=== PATIENT | female | born 1950 | race Caucasian/White ===

== ENCOUNTER 2021-05-05 08:11 | Day surgery (SDC) | payer MEDICARE, MEDICAID ==
[~2021-05-05] VITALS: Ht 157.5 cm; Wt 95.9 kg
[2021-05-05 08:34] VITALS: BP 160/111
[2021-05-05] MEDS ORDERED: FURO-150 PO (08:48)
[2021-05-05] MEDS ORDERED: DULO60CA65 PO (08:50)
[2021-05-05] MEDS ORDERED: METF-436 PO (08:50)
[2021-05-05] MEDS ORDERED: POTA10TA36 PO (08:54)
[2021-05-05] MEDS ORDERED: LOSA50TA64 PO (08:55)
[2021-05-05] MEDS ORDERED: CLOP75TA33 PO (08:56)
[2021-05-05] MEDS ORDERED: CARV3.1244 PO (08:56)
[2021-05-05] MEDS ORDERED: AMLO10TA PO (08:57)
[2021-05-05] MEDS ORDERED: DILT240C90 PO (09:00)
[2021-05-05] MEDS ORDERED: NITR0.4T SL (09:01)
[2021-05-05] MEDS ORDERED: fentaNYL/PF 50MCG/1 ML 2ML syringe ONE (09:08)
[2021-05-05] MEDS ORDERED: MIDAZolam 1 MG/ML 5ML VIAL ONE (09:08)
[2021-05-05 09:52] VITALS: BP 168/75
[2021-05-05 10:02] VITALS: BP 156/65
[2021-05-05 10:12] VITALS: BP 145/55
[2021-05-05 10:22] VITALS: BP 152/71
== END 2021-05-05 10:25 | disposition home or self-care (01) ==
LOC: GI LAB 08:11
PROVIDERS: ATTEND Internal Medicine Gastroenterology
DX: R19.5 Other fecal abnormalities (principal); C19 Malignant neoplasm of rectosigmoid junction; K57.30 Diverticulosis of large intestine without perforation or abscess without bleeding; I10 Essential (primary) hypertension; I25.2 Old myocardial infarction; J44.9 Chronic obstructive pulmonary disease, unspecified; F17.210 Nicotine dependence, cigarettes, uncomplicated; Z95.5 Presence of coronary angioplasty implant and graft; Z79.01 Long term (current) use of anticoagulants; Z79.899 Other long term (current) drug therapy
CPT/HCPCS: 45380; 99153; G0500; J2250; J3010; J7040; 99152; A4620

== ENCOUNTER 2021-06-18 11:03 | Day surgery (SDC) | payer MEDICARE, MEDICAID ==
[~2021-06-18 11:03] MED LIST: AMLO10TA PO; CARV3.1244 PO; CLOP75TA33 PO; DILT240C90 PO; DULO60CA65 PO; FURO-150 PO; LOSA50TA64 PO; METF-436 PO; NITR0.4T SL; POTA10TA36 PO
--- NOTE | 2021-06-18 11:30 | NUR ---
PER ANGIO RN AND MD PROCEDURE CANCELLED.
== END 2021-06-18 11:35 | disposition home or self-care (01) ==
LOC: SSTAY O 11:03
PROVIDERS: ATTEND Radiology Diagnostic Radiology
DX: K76.9 Liver disease, unspecified (principal); C20 Malignant neoplasm of rectum; Z53.8 Procedure and treatment not carried out for other reasons

== ENCOUNTER 2021-07-20 09:02 | Day surgery (SDC) | payer MEDICARE, MEDICAID ==
[~2021-07-20] VITALS: Ht 157.5 cm; Wt 96.6 kg
[2021-07-20] VITALS (13 sets, daily range): BP systolic 114–148; BP diastolic 53–78
[2021-07-20] MEDS ORDERED: normal saline 1000ml 1,000 ML IV SCH ×2 (09:35→09:55)
[2021-07-20] MEDS ORDERED: heparin sodium, porcine/PF 100unit/ml 5ML syringe ONE (10:01)
[2021-07-20] MEDS ORDERED: LIDOcaine 1%/PF 5ML 10 MG/ML VIAL ONE (10:01)
[2021-07-20] MEDS ORDERED: fentaNYL/PF 50MCG/1 ML 2ML syringe ONE ×3 (10:02→11:47)
[2021-07-20] MEDS ORDERED: midazolam 1 mg/ML 2ml injection ONE ×3 (10:02→11:47)
[2021-07-20] MEDS ORDERED: ASPI-1265 PO (10:29)
[2021-07-20] MEDS ORDERED: CHLO25TA10 PO (10:29)
[2021-07-20] MEDS ORDERED: HYDR-3964 PO (10:29)
[2021-07-20] MEDS ORDERED: NITR0.4T51 SL (10:29)
[2021-07-20 10:55] LABS: BASOPHILS % (AUTO) 0.3 % (0-1); EOSINOPHILS # (AUTO) 0.6 X10'3 (0-0.9); EOSINOPHILS % (AUTO) 7.6 % (0-6); HEMATOCRIT 40.2 % (35.0-45.0); HEMOGLOBIN 13.3 g/dl (12.0-16.0); LYMPHOCYTES # (AUTO) 2.8 X10'3 (1.1-4.8); LYMPHOCYTES % (AUTO) 33.4 % (21-51); MEAN CORPUSCULAR HEMOGLOBIN 27.9 PG (27.0-31.0); MEAN CORPUSCULAR VOLUME 84.4 FL (78-98); MEAN PLATELET VOLUME 7.5 FL (7.4-10.4); MONOCYTES # (AUTO) 0.7 X10'3 (0-0.9); MONOCYTES % (AUTO) 8.4 % (2-12); NEUTROPHILS # (AUTO) 4.2 X10'3 (1.8-7.7); NEUTROPHILS % (AUTO) 50.3 % (42-75); PLATELET COUNT 394 X10'3 (140-440); RED BLOOD COUNT 4.76 X10'6 (4.20-5.60); RED CELL DISTRIBUTION WIDTH 16.7 % (11.5-14.5); WHITE BLOOD COUNT 8.4 X10'3 (4.5-11.0)
== END 2021-07-20 15:50 | disposition home or self-care (01) ==
LOC: SSTAY O 09:02
PROVIDERS: ATTEND Radiology Diagnostic Radiology
DX: C20 Malignant neoplasm of rectum (principal); K76.89 Other specified diseases of liver; E11.9 Type 2 diabetes mellitus without complications; I10 Essential (primary) hypertension; I25.10 Atherosclerotic heart disease of native coronary artery without angina pectoris; Z98.890 Other specified postprocedural states; Z79.899 Other long term (current) drug therapy; Z79.01 Long term (current) use of anticoagulants; Z79.84 Long term (current) use of oral hypoglycemic drugs
CPT/HCPCS: 36561; 47000; 76937; 77001; 77012; 85025; 85610; 99152; 99153; C1769; C1788; C1894; J1642; J2250; J3010; 88307

== ENCOUNTER 2021-07-30 07:39 | Day surgery (SDC) | payer MEDICARE, MEDICAID ==
[~2021-07-30] VITALS: Ht 157.5 cm; Wt 97.8 kg
[~2021-07-30 07:39] MED LIST changes: +ASPI-1265 PO; +CHLO25TA10 PO; +HYDR-3964 PO; +NITR0.4T51 SL
[2021-07-30 08:20] VITALS: BP 141/72
[2021-07-30] MEDS ORDERED: morphine 4 MG/ML inj SYRINge IV ONE (08:45)
[2021-07-30] MEDS ORDERED: TIOT18CA3 (09:06)
== END 2021-07-30 10:00 | disposition home or self-care (01) ==
LOC: SSTAY O 07:39
PROVIDERS: ATTEND Preventive Medicine Aerospace Medicine
DX: Z45.2 Encounter for adjustment and management of vascular access device (principal); Z53.8 Procedure and treatment not carried out for other reasons; I51.7 Cardiomegaly; J98.11 Atelectasis
CPT/HCPCS: 71045; J2270

== ENCOUNTER 2021-08-03 08:53 | Day surgery (SDC) | payer MEDICARE, MEDICAID ==
[~2021-08-03] VITALS: Ht 157.5 cm; Wt 97.7 kg
[~2021-08-03 08:53] MED LIST changes: -ASPI-1265 PO; -CLOP75TA33 PO; -DILT240C90 PO; +TIOT18CA3 PO
[2021-08-03 09:30] VITALS: BP 166/84
[2021-08-03] MEDS ORDERED: morphine 4 MG/ML inj SYRINge IV ONE (09:50)
[2021-08-03] MEDS ORDERED: ASPI-1265 PO (09:51)
[2021-08-03] MEDS ORDERED: CHOL100046 PO (09:51)
[2021-08-03 10:55] LABS: BASOPHILS # (AUTO) 0.1 X10'3 (0-0.2); EOSINOPHILS # (AUTO) 0.5 X10'3 (0-0.9); EOSINOPHILS % (AUTO) 6.1 % (0-6); HEMATOCRIT 32.3 % (35.0-45.0); HEMOGLOBIN 11.3 g/dl (12.0-16.0); LYMPHOCYTES # (AUTO) 2.8 X10'3 (1.1-4.8); LYMPHOCYTES % (AUTO) 32.4 % (21-51); MEAN CORPUSCULAR HEMOGLOBIN 29.1 PG (27.0-31.0); MEAN CORPUSCULAR HGB CONC 35.1 g/dL (33.0-36.5); MEAN CORPUSCULAR VOLUME 82.9 FL (78-98); MEAN PLATELET VOLUME 7.2 FL (7.4-10.4); MONOCYTES # (AUTO) 0.9 X10'3 (0-0.9); MONOCYTES % (AUTO) 10.3 % (2-12); NEUTROPHILS # (AUTO) 4.4 X10'3 (1.8-7.7); NEUTROPHILS % (AUTO) 50.2 % (42-75); PLATELET COUNT 403 X10'3 (140-440); RED CELL DISTRIBUTION WIDTH 17.5 % (11.5-14.5); WHITE BLOOD COUNT 8.7 X10'3 (4.5-11.0)
[2021-08-03 11:01] LABS: ALBUMIN 2.9 G/DL (3.4-5.0); ANION GAP 7 (8-16); BLOOD UREA NITROGEN 6 MG/DL (7-18); CALCIUM 8.4 MG/DL (8.5-10.1); CHLORIDE 94 MMOL/L (99-107); CREATININE 0.67 MG/DL (0.40-0.90); GLUCOSE 99 MG/DL (70-104); POTASSIUM 3.8 MMOL/L (3.5-5.1); SODIUM 131 MMOL/L (135-145); TOTAL CARBON DIOXIDE 29.6 MMOL/L (24-32); eGFR 87 ML/MIN
[2021-08-03] MEDS ORDERED: iohexol 300 MG/1 ML 50ml polymer ONE (11:34)
[2021-08-03] MEDS ORDERED: heparin sodium, porcine/PF 100unit/ml 5ML syringe ONE ×2 (11:35→12:37)
[2021-08-03] MEDS ORDERED: fentaNYL/PF 50MCG/1 ML 2ML syringe ONE ×2 (11:50→12:12)
[2021-08-03] MEDS ORDERED: midazolam 1 mg/ML 2ml injection ONE (12:10)
[2021-08-03] MEDS ORDERED: LIDOcaine 1%/PF 5ML 10 MG/ML VIAL ONE (12:15)
[2021-08-03] MEDS ORDERED: cefazolin/dext.iso 2gm/100ml 100 ML IV ONE (12:45)
[2021-08-03] MEDS ORDERED: LIDOcaine/PRILOcaine 5gm cream TP ONE (12:45)
[2021-08-03 13:00] VITALS: BP 152/76
[2021-08-03 13:15] VITALS: BP 121/98
[2021-08-03 13:30] VITALS: BP 127/89
[2021-08-03 13:45] VITALS: BP 141/82
== END 2021-08-03 14:25 | disposition home or self-care (01) ==
LOC: SSTAY O 08:53
PROVIDERS: ATTEND Radiology Vascular & Interventional Radiology
DX: T82.598A Other mechanical complication of other cardiac and vascular devices and implants, initial encounter (principal); C20 Malignant neoplasm of rectum; I25.10 Atherosclerotic heart disease of native coronary artery without angina pectoris; E11.9 Type 2 diabetes mellitus without complications; I10 Essential (primary) hypertension; Z98.890 Other specified postprocedural states; Z79.899 Other long term (current) drug therapy; Z79.01 Long term (current) use of anticoagulants; Z79.84 Long term (current) use of oral hypoglycemic drugs; Y83.8 Other surgical procedures as the cause of abnormal reaction of the patient, or of later complication, without mention of misadventure at the time of the procedure; Y92.89 Other specified places as the place of occurrence of the external cause
CPT/HCPCS: 36415; 36576; 80048; 85025; 99152; 99153; J1642; J2250; J2270; J3010; Q9967; 36582; 77001

== ENCOUNTER 2021-08-10 10:45 | Inpatient (IN) | payer MEDICARE, MEDICAID ==
[2021-08-10] VITALS (14 sets, daily range): BP systolic 131–200; BP diastolic 68–90
[~2021-08-10] VITALS: Ht 157.5 cm; Wt 95.9 kg
[~2021-08-10 10:45] MED LIST changes: +ASPI-1265 PO; +CHOL100046 PO
[2021-08-10] MEDS ORDERED: piperacillin/tazo 3.375gm/50ml 50 ML IV ONE (11:00)
[2021-08-10] MEDS ORDERED: vancomycin/NS 1 GM ADD-VANTAGE 250 ML IV ONE (11:00)
[2021-08-10] MEDS ORDERED: normal saline 1000ML IV soln IVB ONE (11:00)
[2021-08-10] MEDS ORDERED: ondansetron/PF 4mg/2ml inj IV ONE (11:30)
[2021-08-10] MEDS ORDERED: morphine 4 MG/ML inj SYRINge IV ONE (11:30)
[2021-08-10 11:35] LABS: BASOPHILS % (AUTO) 0.6 % (0-1); EOSINOPHILS # (AUTO) 0.3 X10'3 (0-0.9); EOSINOPHILS % (AUTO) 3.6 % (0-6); HEMOGLOBIN 11.7 g/dl (12.0-16.0); LYMPHOCYTES # (AUTO) 2.1 X10'3 (1.1-4.8); LYMPHOCYTES % (AUTO) 26.7 % (21-51); MEAN CORPUSCULAR HGB CONC 34.5 g/dL (33.0-36.5); MEAN CORPUSCULAR VOLUME 83.8 FL (78-98); MONOCYTES # (AUTO) 0.8 X10'3 (0-0.9); MONOCYTES % (AUTO) 10.8 % (2-12); NEUTROPHILS # (AUTO) 4.5 X10'3 (1.8-7.7); NEUTROPHILS % (AUTO) 58.3 % (42-75); PLATELET COUNT 424 X10'3 (140-440); RED BLOOD COUNT 4.06 X10'6 (4.20-5.60); RED CELL DISTRIBUTION WIDTH 18.2 % (11.5-14.5); WHITE BLOOD COUNT 7.8 X10'3 (4.5-11.0)
[2021-08-10 11:44] LABS: ALANINE AMINOTRANSFERASE 17 U/L (12-78); ALBUMIN 3.1 G/DL (3.4-5.0); ALBUMIN/GLOBULIN RATIO 0.7 (1.1-1.5); ALKALINE PHOSPHATASE 113 IU/L (46-116); ANION GAP 9 (8-16); ASPARTATE AMINO TRANSFERASE 11 U/L (10-37); BILIRUBIN,TOTAL 0.5 MG/DL (0.1-1.0); BLOOD UREA NITROGEN 7 MG/DL (7-18); BUN/CREATININE RATIO 10.9 (6.6-38.0); CALCIUM 8.7 MG/DL (8.5-10.1); CHLORIDE 93 MMOL/L (99-107); CREATININE 0.64 MG/DL (0.40-0.90); GLUCOSE 124 MG/DL (70-104); MAGNESIUM 1.8 MG/DL (1.5-2.4); POTASSIUM 3.6 MMOL/L (3.5-5.1); SODIUM 132 MMOL/L (135-145); TOTAL CARBON DIOXIDE 30.1 MMOL/L (24-32); TOTAL PROTEIN 7.3 G/DL (6.4-8.2); eGFR > 90 ML/MIN
[2021-08-10] MEDS ORDERED: LIDOcaine/epinephrine/tetracaine TOPICAL sol 3 ML syringe TOP ONE (12:00)
--- NOTE | 2021-08-10 12:18 | NUR ---
[phone] sister in law
--- NOTE | 2021-08-10 12:47 | NUR ---
relieving RN for lunch, pt is resting quietly on gurney, resp even and unlabored, accessed port to rt upper chest, unable to flush or draw blood for blood cx
[2021-08-10] MEDS ORDERED: ATOR40TA72 PO (12:54)
[2021-08-10] MEDS ORDERED: CLOP75TA34 PO (12:55)
[2021-08-10] MEDS ORDERED: AMLO2.5T5 PO (12:56)
[2021-08-10] MEDS ORDERED: magnesium 2GM in 50ml NS 50 ML IV PRN (13:05)
[2021-08-10] MEDS ORDERED: glucagon, human recombinant 1mg kit SUBCUT PRN (13:05)
[2021-08-10] MEDS ORDERED: dextrose 50%-water 50ml dispensing syringe IV PRN ×2 (13:05)
[2021-08-10] MEDS ORDERED: diphenhydrAMINE 25mg capsule PO PRN (13:05)
[2021-08-10] MEDS ORDERED: magnesium Cl slow-release 64mg tablet PO PRN (13:05)
[2021-08-10] MEDS ORDERED: ondansetron/PF 4mg/2ml inj IV PRN ×2 (13:05→15:45)
[2021-08-10] MEDS ORDERED: potassium Cl 40MEQ/1/2NS 520ml 520 ML IV PRN ×2 (13:05)
[2021-08-10] MEDS ORDERED: dextrose ORAL solution 15 GM/59 ML bottle PO PRN ×2 (13:05)
[2021-08-10] MEDS ORDERED: magnesium hydroxide 30ml (MOM) UD suspension PO PRN (13:05)
[2021-08-10] MEDS ORDERED: magnesium 4gm in 100ml NS 100 ML IV PRN (13:05)
[2021-08-10] MEDS ORDERED: morphine 2 MG/ML inj. syringe IV PRN ×3 (13:05→15:45)
[2021-08-10] MEDS ORDERED: acetaminophen 650mg rectal suppository RC PRN (13:05)
[2021-08-10] MEDS ORDERED: potassium Cl 20 mEq SR tablet PO PRN (13:05)
[2021-08-10] MEDS ORDERED: bisacodyl 10mg suppository rectal RC PRN (13:05)
[2021-08-10] MEDS ORDERED: mag hydrox/Alum hydrox/simeth 30ml oral suspension PO PRN (13:05)
[2021-08-10] MEDS ORDERED: acetaminophen 325mg tablet PO PRN ×2 (13:05)
[2021-08-10] MEDS ORDERED: MESSAGE TO PHARMACY PO ONE (13:05)
[2021-08-10 14:13] LABS: HEMOGLOBIN A1C 6.6 % (4.5-6.2)
[2021-08-10] MEDS ORDERED: LIDOcaine 1% 30ml preserv. free vial ONE (14:29)
[2021-08-10] MEDS ORDERED: BUPIVAcaine/PF 2.5mg/ml (0.25%) 10ml vial ONE (14:30)
[2021-08-10] MEDS ORDERED: heparin sodium, porcine/PF 100unit/ml 5ML syringe ONE (14:30)
[2021-08-10] MEDS ORDERED: famotidine 20mg tablet PO ONE (14:55)
[2021-08-10] MEDS ORDERED: ondansetron/PF 4mg/2ml inj ONE ×2 (15:41→16:05)
[2021-08-10] MEDS ORDERED: sevoflurane 250ml liquid IH ONE (15:41)
[2021-08-10] MEDS ORDERED: proCHLORperazine 10 MG/2 ml inj IV PRN (15:45)
[2021-08-10] MEDS ORDERED: labetalol 20mg/4ml (5mg/ml) syringe IV PRN (15:45)
[2021-08-10] MEDS ORDERED: hydrALAZINE 20mg/ml inj. IV PRN ×2 (15:45→20:00)
[2021-08-10] MEDS ORDERED: morphine 4 MG/ML inj SYRINge IV PRN (15:45)
[2021-08-10] MEDS ORDERED: ringers solution, lacted 1,000 ML IV SCH (15:45)
[2021-08-10] MEDS ORDERED: HYDROmorphone/PF 0.2 MG/ML SYRINGE IV PRN ×2 (15:45)
[2021-08-10] MEDS ORDERED: acetaminophen 1,000mg/100ml IV 100 ML IV PRN (15:45)
[2021-08-10] MEDS ORDERED: meperidine/PF 25mg/ml syringe IV PRN (15:45)
[2021-08-10] MEDS ORDERED: fentaNYL/PF 50MCG/1 ML 2ML syringe ONE (15:47)
[2021-08-10] MEDS ORDERED: midazolam 1 mg/ML 2ml injection ONE (15:53)
[2021-08-10] MEDS: piperacillin/tazo 3.375gm/50ml 50 ML IV SCH (16:00)
[2021-08-10] MEDS ORDERED: dexamethasone sod phosphate 4mg/ml inj. ONE (16:05)
[2021-08-10] MEDS ORDERED: LIDOcaine 2% (20mg/ml) 5ml vial ONE (16:05)
[2021-08-10] MEDS ORDERED: propofol inj 20 ML IV ONE (16:05)
--- NOTE | 2021-08-10 16:34 | NUR ---
ASSUME CARE VSS NO DISTRESS DENIES PAIN DRESSING TO RIGHT CW CDI IV TO LAC 18G INTACT CONT TO MONITOR Addendum: 08/10/21 at 1706 by Tangela Cervantes RN Amended: Links added.
--- NOTE | 2021-08-10 16:34 | NUR ---
ASSUME CARE PT AWAKE ALERT VSS NO DISTRESS DRESSING TO RIGHT CW CDI DENIW
--- NOTE | 2021-08-10 17:09 | NUR ---
PT MORE AWAKE VSS NO DISTESS DENIES PAIN MEETS CRITERIA TO DC TO ROOM REPORT CALLED. Addendum: 08/10/21 at 1710 by Tangela Cervantes RN Amended: Links added.
[2021-08-10] MEDS: normal saline 1000ml 1,000 ML IV SCH ×2 (18:20→23:05)
--- NOTE | 2021-08-10 19:02 | NUR ---
Patient in room [facility]. I have received report from Recovery nurse and had the opportunity to ask questions and assume patient care.patient orientated to room. Dressing CDI to RU chest. patient was hypertensive on admit. 200/90. retook B/P when settled down. 183/76. report given to Matthew ISRAEL
[2021-08-10] MEDS: K and/or MAG REPLACEMENT MC SCH (20:00)
[2021-08-10] MEDS: heparin, porcine 5000 units/ml vial SQ SCH ×2 (20:00→20:41)
[2021-08-10] MEDS: chlorthalidone 25mg tablet PO SCH (20:39)
[2021-08-10] MEDS: carVEDilol 3.125mg tablet PO SCH (20:40)
[2021-08-10] MEDS: losartan 50mg tablet PO SCH (20:40)
[2021-08-10] MEDS: docusate sod 100mg capsule PO SCH (20:40)
[2021-08-10] MEDS: amLODIPine 2.5mg tablet PO SCH (21:25)
[2021-08-10] MEDS: HYDROcodone/acetaminophen 10/325mg tab PO PRN (21:30)
[2021-08-10] MEDS: insulin glargine (Lantus) pen - multi-dose SQ SCH (23:03)
[2021-08-10] MEDS: vancomycin/NS 1 GM ADD-VANTAGE 250 ML IV SCH (23:20)
[2021-08-11] VITALS: BP 165/82
[2021-08-11] MEDS: piperacillin/tazo 3.375gm/50ml 50 ML IV SCH ×3 (01:30→17:44)
[2021-08-11] MEDS: benzocaine/menthol oral lozeng 1 EACH BOX MM PRN ×4 (02:00→19:53)
[2021-08-11 04:00] VITALS: BP 173/82
[2021-08-11 06:33] LABS: BASOPHILS % (AUTO) 0.4 % (0-1); EOSINOPHILS % (AUTO) 0.1 % (0-6); HEMATOCRIT 33.4 % (35.0-45.0); HEMOGLOBIN 10.9 g/dl (12.0-16.0); LYMPHOCYTES % (AUTO) 11.4 % (21-51); MEAN CORPUSCULAR HEMOGLOBIN 28.1 PG (27.0-31.0); MEAN CORPUSCULAR HGB CONC 32.7 g/dL (33.0-36.5); MEAN PLATELET VOLUME 7.4 FL (7.4-10.4); MONOCYTES # (AUTO) 0.8 X10'3 (0-0.9); MONOCYTES % (AUTO) 9.9 % (2-12); NEUTROPHILS # (AUTO) 6.6 X10'3 (1.8-7.7); NEUTROPHILS % (AUTO) 78.2 % (42-75); PLATELET COUNT 357 X10'3 (140-440); RED BLOOD COUNT 3.89 X10'6 (4.20-5.60); RED CELL DISTRIBUTION WIDTH 18.4 % (11.5-14.5); WHITE BLOOD COUNT 8.4 X10'3 (4.5-11.0)
[2021-08-11 06:48] LABS: ALANINE AMINOTRANSFERASE 15 U/L (12-78); ALBUMIN 2.6 G/DL (3.4-5.0); ALBUMIN/GLOBULIN RATIO 0.6 (1.1-1.5); ALKALINE PHOSPHATASE 99 IU/L (46-116); ANION GAP 11 (8-16); ASPARTATE AMINO TRANSFERASE 8 U/L (10-37); BILIRUBIN,TOTAL 0.4 MG/DL (0.1-1.0); BLOOD UREA NITROGEN 8 MG/DL (7-18); BUN/CREATININE RATIO 15.1 (6.6-38.0); CALCIUM 8.6 MG/DL (8.5-10.1); CHLORIDE 97 MMOL/L (99-107); CHOL/HDL RATIO 2.1 (0.00-4.99); CHOLESTEROL 115 MG/DL (0-200); CREATININE 0.53 MG/DL (0.40-0.90); GLUCOSE 149 MG/DL (70-104); HDL CHOLESTEROL 54 MG/DL (35-60); LDL CHOLESTEROL 48 MG/DL (50-100); PHOSPHORUS 3.9 MG/DL (2.3-4.5); SODIUM 135 MMOL/L (135-145); TOTAL CARBON DIOXIDE 26.7 MMOL/L (24-32); TOTAL PROTEIN 6.7 G/DL (6.4-8.2); TRIGLYCERIDES 91 MG/DL (20-135); eGFR > 90 ML/MIN
[2021-08-11 07:00] VITALS: BP 174/82
[2021-08-11] MEDS: normal saline 1000ml 1,000 ML IV SCH ×2 (07:00→19:05)
--- NOTE | 2021-08-11 07:05 | NUR ---
Problems reprioritized. Patient report given, questions answered & plan of care reviewed with KATIE. Addendum: 08/11/21 at 0705 by Benjamín Leon RN Amended: Links added.
[2021-08-11] MEDS: aspirin 81mg tab.chew PO SCH (07:29)
[2021-08-11] MEDS: clopidogrel 75mg tablet PO SCH (07:30)
[2021-08-11] MEDS: atorvastatin 20mg tablet PO SCH (07:30)
[2021-08-11] MEDS: furosemide 20MG tablet PO SCH (07:31)
[2021-08-11] MEDS: carVEDilol 3.125mg tablet PO SCH ×2 (07:31→19:43)
[2021-08-11] MEDS: duloxetine 30mg CAPSULE.DR PO SCH (07:31)
[2021-08-11] MEDS: heparin, porcine 5000 units/ml vial SQ SCH ×2 (07:32→20:00)
[2021-08-11] MEDS: amLODIPine 2.5mg tablet PO SCH (07:32)
[2021-08-11] MEDS: ipratropium 0.5 MG/2.5ML nebule NEB SCH ×3 (08:00→20:00)
[2021-08-11] MEDS: K and/or MAG REPLACEMENT MC SCH ×2 (08:00→20:00)
[2021-08-11] MEDS: chlorthalidone 25mg tablet PO SCH (08:00)
[2021-08-11] MEDS: losartan 50mg tablet PO SCH ×2 (08:00→19:43)
[2021-08-11] MEDS: docusate sod 100mg capsule PO SCH ×2 (08:00→19:40)
[2021-08-11] MEDS: vancomycin/NS 1 GM ADD-VANTAGE 250 ML IV SCH (13:23)
[2021-08-11] MEDS: insulin Lispro (HumaLOG) vial - multi-dose SQ SCH (14:05)
--- NOTE | 2021-08-11 16:08 | NUR ---
Pt alert and oriented x3. Currently sitting in chair near bed watching televison. Pt denies pain. Dressing to right upper chest is clean, dry, and intact. VS within normal limits. Picc line dressing is clean, dry, and intact. Pt will continue to be monitored.
[2021-08-11 17:12] LABS: CLARITY,URINE CLEAR (Clear); COLOR,URINE YELLOW (Yellow); UA COLLECTION TYPE NON-SPECIFIED
[2021-08-11 17:13] LABS: GLUCOSE, URINE NEGATIVE (Neg); KETONES,URINE NEGATIVE (Neg); LEUKOCYTE ESTERASE ,URINE NEGATIVE (Neg); NITRITES, URINE NEGATIVE (Neg); OCCULT BLOOD,URINE NEGATIVE (Neg); PROTEIN,URINE NEGATIVE (Neg); UROBILINOGEN,URINE 0.2 E.U/dL (0.2-1.0)
[2021-08-11 18:00] VITALS: BP 194/80
--- NOTE | 2021-08-11 18:02 | NUR ---
Pt had critical Potassium lab at 0700 of 3.0. Potassium protocol started. Dr. Begum paged and made aware of protocol initiated. no new orders.
[2021-08-11] MEDS: lactobacillus rhamnosus 10,000 MMU CELLS/CAPSULE PO SCH (20:00)
[2021-08-11] MEDS: insulin glargine (Lantus) pen - multi-dose SQ SCH (21:59)
[2021-08-11] MEDS ORDERED: VANCOMYCIN LEVEL IV ONE (23:30)
[2021-08-12] VITALS: BP 157/83
[2021-08-12] MEDS: vancomycin/NS 1 GM ADD-VANTAGE 250 ML IV SCH ×2 (00:08→12:15)
[2021-08-12] MEDS: piperacillin/tazo 3.375gm/50ml 50 ML IV SCH ×3 (00:25→17:05)
[2021-08-12] MEDS: ipratropium 0.5 MG/2.5ML nebule NEB SCH (02:00)
[2021-08-12] MEDS: normal saline 1000ml 1,000 ML IV SCH ×2 (05:05→12:03)
--- NOTE | 2021-08-12 06:17 | NUR ---
Problems reprioritized. Patient report given, questions answered & plan of care reviewed with Brittani ISRAEL.
[2021-08-12 06:50] VITALS: BP 155/74
[2021-08-12] MEDS: K and/or MAG REPLACEMENT MC SCH ×2 (08:00→20:00)
[2021-08-12] MEDS: amLODIPine 2.5mg tablet PO SCH (09:25)
[2021-08-12] MEDS: aspirin 81mg tab.chew PO SCH (09:26)
[2021-08-12] MEDS: carVEDilol 3.125mg tablet PO SCH ×2 (09:27→19:30)
[2021-08-12] MEDS: atorvastatin 20mg tablet PO SCH (09:27)
[2021-08-12] MEDS: clopidogrel 75mg tablet PO SCH (09:28)
[2021-08-12] MEDS: insulin Lispro (HumaLOG) vial - multi-dose SQ SCH ×2 (09:31→19:28)
[2021-08-12] MEDS: HYDROcodone/acetaminophen 5mg/325mg tablet PO PRN (09:31)
[2021-08-12] MEDS: lactobacillus rhamnosus 10,000 MMU CELLS/CAPSULE PO SCH ×2 (10:02→19:35)
[2021-08-12] MEDS: furosemide 20MG tablet PO SCH (10:03)
[2021-08-12] MEDS: chlorthalidone 25mg tablet PO SCH (10:03)
[2021-08-12] MEDS: duloxetine 30mg CAPSULE.DR PO SCH (10:05)
[2021-08-12] MEDS: docusate sod 100mg capsule PO SCH ×2 (10:05→19:30)
[2021-08-12] MEDS: heparin, porcine 5000 units/ml vial SQ SCH ×2 (10:06→19:38)
[2021-08-12] MEDS: losartan 50mg tablet PO SCH ×2 (10:17→19:32)
[2021-08-12 11:00] VITALS: BP 180/98
[2021-08-12 12:42] LABS: BASOPHILS # (AUTO) 0.1 X10'3 (0-0.2); BASOPHILS % (AUTO) 0.6 % (0-1); EOSINOPHILS # (AUTO) 0.3 X10'3 (0-0.9); EOSINOPHILS % (AUTO) 2.6 % (0-6); HEMATOCRIT 36.4 % (35.0-45.0); HEMOGLOBIN 12.2 g/dl (12.0-16.0); LYMPHOCYTES # (AUTO) 3.5 X10'3 (1.1-4.8); LYMPHOCYTES % (AUTO) 30.3 % (21-51); MEAN CORPUSCULAR HEMOGLOBIN 28.5 PG (27.0-31.0); MEAN CORPUSCULAR HGB CONC 33.5 g/dL (33.0-36.5); MEAN PLATELET VOLUME 7.3 FL (7.4-10.4); MONOCYTES # (AUTO) 1.3 X10'3 (0-0.9); MONOCYTES % (AUTO) 11.6 % (2-12); NEUTROPHILS # (AUTO) 6.3 X10'3 (1.8-7.7); NEUTROPHILS % (AUTO) 54.9 % (42-75); PLATELET COUNT 507 X10'3 (140-440); RED BLOOD COUNT 4.28 X10'6 (4.20-5.60); RED CELL DISTRIBUTION WIDTH 18.7 % (11.5-14.5); WHITE BLOOD COUNT 11.5 X10'3 (4.5-11.0)
[2021-08-12 12:56] LABS: ALANINE AMINOTRANSFERASE 21 U/L (12-78); ALBUMIN/GLOBULIN RATIO 0.6 (1.1-1.5); ALKALINE PHOSPHATASE 119 IU/L (46-116); ANION GAP 8 (8-16); ASPARTATE AMINO TRANSFERASE 13 U/L (10-37); BILIRUBIN,TOTAL 0.5 MG/DL (0.1-1.0); BLOOD UREA NITROGEN 11 MG/DL (7-18); BUN/CREATININE RATIO 15.7 (6.6-38.0); CHLORIDE 93 MMOL/L (99-107); GLUCOSE 51 MG/DL (70-104); MAGNESIUM 1.8 MG/DL (1.5-2.4); PHOSPHORUS 4.2 MG/DL (2.3-4.5); POTASSIUM 3.2 MMOL/L (3.5-5.1); SODIUM 135 MMOL/L (135-145); TOTAL CARBON DIOXIDE 33.7 MMOL/L (24-32); TOTAL PROTEIN 7.9 G/DL (6.4-8.2); eGFR 83 ML/MIN
[2021-08-12] MEDS: potassium Cl 20 mEq SR tablet PO PRN ×2 (15:42→21:45)
[2021-08-12 18:00] VITALS: BP 148/68
--- NOTE | 2021-08-12 19:11 | NUR ---
Problems reprioritized. Patient report given, questions answered & plan of care reviewed with LINDY Xavier.
--- NOTE | 2021-08-12 19:14 | NUR ---
I have received report from LINDY Peter and had the opportunity to ask questions and assume patient care.
[2021-08-12] MEDS: HYDROcodone/acetaminophen 10/325mg tab PO PRN (19:34)
[2021-08-12] MEDS: insulin glargine (Lantus) pen - multi-dose SQ SCH (21:49)
[2021-08-12] MEDS: VANCOmycin 1250MG/NS 250ml Bag 250 ML IV SCH (21:53)
[2021-08-13] VITALS: BP 182/83
[2021-08-13] MEDS: HYDROcodone/acetaminophen 10/325mg tab PO PRN (00:13)
[2021-08-13] MEDS: piperacillin/tazo 3.375gm/50ml 50 ML IV SCH ×2 (00:35→07:28)
[2021-08-13] MEDS: normal saline 1000ml 1,000 ML IV SCH ×2 (01:05→07:33)
[2021-08-13 06:12] LABS: BASOPHILS # (AUTO) 0.1 X10'3 (0-0.2); BASOPHILS % (AUTO) 1.2 % (0-1); EOSINOPHILS # (AUTO) 0.3 X10'3 (0-0.9); EOSINOPHILS % (AUTO) 4.7 % (0-6); HEMATOCRIT 32.2 % (35.0-45.0); LYMPHOCYTES % (AUTO) 29.5 % (21-51); MEAN CORPUSCULAR HEMOGLOBIN 28.6 PG (27.0-31.0); MEAN CORPUSCULAR HGB CONC 34.1 g/dL (33.0-36.5); MEAN CORPUSCULAR VOLUME 83.7 FL (78-98); MEAN PLATELET VOLUME 7.2 FL (7.4-10.4); MONOCYTES # (AUTO) 0.9 X10'3 (0-0.9); MONOCYTES % (AUTO) 13.7 % (2-12); NEUTROPHILS # (AUTO) 3.4 X10'3 (1.8-7.7); NEUTROPHILS % (AUTO) 50.9 % (42-75); PLATELET COUNT 405 X10'3 (140-440); RED BLOOD COUNT 3.85 X10'6 (4.20-5.60); RED CELL DISTRIBUTION WIDTH 18.5 % (11.5-14.5); WHITE BLOOD COUNT 6.6 X10'3 (4.5-11.0)
[2021-08-13 06:19] LABS: ALANINE AMINOTRANSFERASE 15 U/L (12-78); ALBUMIN 2.7 G/DL (3.4-5.0); ALBUMIN/GLOBULIN RATIO 0.7 (1.1-1.5); ALKALINE PHOSPHATASE 106 IU/L (46-116); ANION GAP 6 (8-16); ASPARTATE AMINO TRANSFERASE 10 U/L (10-37); BILIRUBIN,TOTAL 0.6 MG/DL (0.1-1.0); BLOOD UREA NITROGEN 9 MG/DL (7-18); BUN/CREATININE RATIO 12.7 (6.6-38.0); CALCIUM 8.6 MG/DL (8.5-10.1); CHLORIDE 96 MMOL/L (99-107); CREATININE 0.71 MG/DL (0.40-0.90); GLUCOSE 108 MG/DL (70-104); MAGNESIUM 1.8 MG/DL (1.5-2.4); PHOSPHORUS 3.6 MG/DL (2.3-4.5); POTASSIUM 3.3 MMOL/L (3.5-5.1); SODIUM 132 MMOL/L (135-145); TOTAL CARBON DIOXIDE 30.4 MMOL/L (24-32); TOTAL PROTEIN 6.8 G/DL (6.4-8.2); eGFR 82 ML/MIN
[2021-08-13 06:35] VITALS: BP 173/78
--- NOTE | 2021-08-13 06:39 | NUR ---
Patient in room [facility] 349. I have received report from LINDY Xavier and had the opportunity to ask questions and assume patient care.
--- NOTE | 2021-08-13 06:43 | NUR ---
I have received report from LINDY Celestin and had the opportunity to ask questions and assume patient care. Addendum: 08/13/21 at 0646 by uDc Bey RN I gave report to LINDY Celestin
[2021-08-13] MEDS: duloxetine 30mg CAPSULE.DR PO SCH (07:24)
[2021-08-13] MEDS: HYDROcodone/acetaminophen 5mg/325mg tablet PO PRN ×2 (07:25→11:41)
[2021-08-13] MEDS: aspirin 81mg tab.chew PO SCH (07:26)
[2021-08-13] MEDS: atorvastatin 20mg tablet PO SCH (07:26)
[2021-08-13] MEDS: furosemide 20MG tablet PO SCH (07:26)
[2021-08-13] MEDS: carVEDilol 3.125mg tablet PO SCH (07:26)
[2021-08-13] MEDS: potassium Cl 20 mEq SR tablet PO PRN ×2 (07:26→11:22)
[2021-08-13] MEDS: clopidogrel 75mg tablet PO SCH (07:26)
[2021-08-13] MEDS: docusate sod 100mg capsule PO SCH (07:27)
[2021-08-13] MEDS: losartan 50mg tablet PO SCH (07:27)
[2021-08-13] MEDS: lactobacillus rhamnosus 10,000 MMU CELLS/CAPSULE PO SCH (07:27)
[2021-08-13] MEDS: amLODIPine 2.5mg tablet PO SCH (07:27)
[2021-08-13] MEDS: heparin, porcine 5000 units/ml vial SQ SCH (07:45)
[2021-08-13] MEDS: chlorthalidone 25mg tablet PO SCH (07:50)
[2021-08-13] MEDS: K and/or MAG REPLACEMENT MC SCH (08:00)
[2021-08-13] MEDS: insulin Lispro (HumaLOG) vial - multi-dose SQ SCH (08:57)
[2021-08-13] MEDS ORDERED: LINE600T12 PO (09:30)
[2021-08-13] MEDS ORDERED: LACT1CAP26 PO (09:30)
--- NOTE | 2021-08-13 09:37 | NUR ---
PAGER ID: [phone] MESSAGE: [phone]- Elmer Medel- wound vac not placed yet, PICC came out last night. Thank you- Sabi [phone]
--- NOTE | 2021-08-13 10:12 | NUR ---
Dr Begum in to see patient. Aware patient's PICC was pulled out last night and states she does not need a new one.
[2021-08-13] MEDS: VANCOmycin 1250MG/NS 250ml Bag 250 ML IV SCH (11:21)
[2021-08-13 12:10] VITALS: BP 162/80
--- NOTE | 2021-08-13 13:16 | NUR ---
Removed peripheral left arm IV before discharge. cannula intact. patient tolerated well.
--- NOTE | 2021-08-13 13:18 | NUR ---
Discussed with patient discharge instructions and new prescriptions. Patient verbalizes understanding of teaching and made clear she will follow up with wound care for wound vac placement tomorrow. Patient given opportunity to ask questions which patient stated she did not have any. Patient right breast dressing cdi. Patient has all personal belongings packed and ready for dc.
--- NOTE | 2021-08-13 13:23 | NUR ---
Patient dc'd with all personal belongings in wheelchair accompanied by x1 staff.
--- NOTE | 2021-08-13 13:24 | NUR ---
Patient requested that her prescription be called to [facility] in [place] which was.
--- NOTE | 2021-08-13 13:57 | NUR ---
Pharmacist from [facility] called to inform this nurse that there is drug interactoins with zyvox and antidepressants. Informed pharmacist that patient was already instructed to stop duloxetine.
[2021-08-14] MEDS ORDERED: VANCOMYCIN LEVEL IV ONE (09:30)
== END 2021-08-13 13:25 | disposition home or self-care (01) | DRG 315 ==
LOC: ER 10:45 → ED HOLD 13:08 → SUR 3N 17:25
PROVIDERS: ADMIT Family Medicine; ATTEND Family Medicine
PROC: 0JPT3WZ Removal of Totally Implantable Vascular Access Device from Trunk Subcutaneous Tissue and Fascia, Percutaneous Approach (ICD-10-PCS; principal; 2021-08-10 15:41)
PROC: 0W983ZZ Drainage of Chest Wall, Percutaneous Approach (ICD-10-PCS; 2021-08-11)
DX: T80.219A Unspecified infection due to central venous catheter, initial encounter (principal); C18.9 Malignant neoplasm of colon, unspecified; E87.1 Hypo-osmolality and hyponatremia; E78.5 Hyperlipidemia, unspecified; D64.9 Anemia, unspecified; I11.0 Hypertensive heart disease with heart failure; I25.10 Atherosclerotic heart disease of native coronary artery without angina pectoris; I50.9 Heart failure, unspecified; J44.9 Chronic obstructive pulmonary disease, unspecified; Z20.822 Contact with and (suspected) exposure to COVID-19; Y83.8 Other surgical procedures as the cause of abnormal reaction of the patient, or of later complication, without mention of misadventure at the time of the procedure; E66.9 Obesity, unspecified; F17.210 Nicotine dependence, cigarettes, uncomplicated; E87.6 Hypokalemia; F32.A Depression, unspecified; E11.9 Type 2 diabetes mellitus without complications; Z86.16 Personal history of COVID-19; Z79.02 Long term (current) use of antithrombotics/antiplatelets; Z79.84 Long term (current) use of oral hypoglycemic drugs; Z79.899 Other long term (current) drug therapy; Z85.118 Personal history of other malignant neoplasm of bronchus and lung; Z71.6 Tobacco abuse counseling; Y92.89 Other specified places as the place of occurrence of the external cause; Z68.38 Body mass index [BMI] 38.0-38.9, adult
CPT/HCPCS: 36415; 71045; 80053; 80061; 80202; 81003; 82948; 83036; 83605; 83735; 84100; 84145; 85025; 87040; 87070; 87075; 87635; 93005; 96365; 96367; 96375; 97161; 97530; 99285; A4215; A4618; A6407; A6449; A7000; C9803; G0378; J0360; J1100; J1642; J1644; J1815; J2001; J2250; J2270; J2405; J2543; J2704; J3010; J3370; J3490; J7030; J7120

== ENCOUNTER 2021-11-09 09:10 | Emergency (ER) | payer MEDICARE, MEDICAID ==
[~2021-11-09] VITALS: Ht 157.5 cm; Wt 90.7 kg
[~2021-11-09 09:10] MED LIST changes: -AMLO10TA PO; +AMLO2.5T5 PO; +ATOR40TA72 PO; +CLOP75TA34 PO; -DULO60CA65 PO; +LACT1CAP26 PO; -NITR0.4T SL; -NITR0.4T51 SL; -POTA10TA36 PO; +POTA10TA37 PO
[2021-11-09 09:18] VITALS: BP 130/74
== END 2021-11-09 13:18 | disposition left against medical advice (07) ==
LOC: ER 09:11
DX: Z48.00 Encounter for change or removal of nonsurgical wound dressing (principal); Z53.21 Procedure and treatment not carried out due to patient leaving prior to being seen by health care provider